=== PATIENT | male | born 1955 | race Caucasian/White ===

== ENCOUNTER 2018-11-25 09:59 | Observation (INO) | payer BC ==
[~2018-11-25] VITALS: Ht 180.3 cm; Wt 92.6 kg
[2018-11-25] VITALS (20 sets, daily range): BP systolic 114–148; BP diastolic 63–101; PULSE 72–98; RESP 10–21; Ht 180.3 cm; Wt 92.6 kg
[~2018-11-25 09:59] MED LIST: GLYCOPYRROLATE 0.4 MG INJ ONE; HYDR25TA6 PO; NEOSTIGMINE 3 MG/3 ML SYRINGE ONE; SEVOFLURANE 15 MIN ONE
[2018-11-25] MEDS ORDERED: LACTATED RINGER'S 1,000 ML IV* ONE (10:00)
[2018-11-25] MEDS ORDERED: CEFAZOLIN 2 GM/50 ML (PMX) 50 ML IVPB ONE (10:00)
[2018-11-25] MEDS ORDERED: DYAZIDE ORAL (10:40)
[2018-11-25] MEDS ORDERED: THROMBIN (BOVINE) 5,000 UNIT VIAL TP ONE (11:50)
[2018-11-25] MEDS ORDERED: HEPARIN 1000 UNITS/ML 10 ML INJ ONE (11:50)
[2018-11-25] MEDS ORDERED: GELATIN SIZE 100 SPONGE ONE (11:50)
[2018-11-25] MEDS ORDERED: BUPIVACAINE 0.25%/EPI (SDV) 30 ML INJ ONE ×2 (11:50→11:52)
[2018-11-25] MEDS ORDERED: POLYMYXIN/BACITRACIN 1L IRRIG ONE (11:50)
[2018-11-25] MEDS ORDERED: SURGIFOAM POWDER 1 GM KIT ONE (11:50)
[2018-11-25] MEDS ORDERED: CA CHLORIDE 10% 10 ML SYRINGE ONE (11:50)
--- NOTE | 2018-11-25 11:50 | PREAC ---
Date/Time of Note Date/Time of Note DATE: 11/25/18 TIME: 11:49 Anesthesia Eval and Record Evaluation Time Pre-Procedure Interview DATE: 11/25/18 TIME: 11:49 Age 63 Sex male NPO: 8 hrs Preoperative diagnosis herniated disc Planned procedure left L5-S1 extraforaminal microdiscectomy Past Medical History Past Medical History: Includes Cardio: HTN Surgery & Anesthesia Issues No known issue Meds Anticoagulation: No Beta Deborah within 24 hr: No Reason Beta Deborah not given: Pt. not on B-Deborah Reported Medications Triamterene-HCTZ (Dyazide) 37.5 - 25 Mg Cap, 1 CAP ORAL DAILY 11/25/18 Discontinued Reported Medications Hydrochlorothiazide* (Hydrochlorothiazide*) 25 Mg Tab, 25 MG PO DAILY, #30 TAB 11/21/18 Meds reviewed: Yes Allergies Coded Allergies: No Known Drug Allergies (Verified Allergy, Unknown, 11/25/18) Allergies Reviewed: Yes Labs/Studies Labs Reviewed: Reviewed by anesthesiologist test: N/A Pre-procedure Exam Last vitals Vital Signs Date Temp Pulse Resp B/P (MAP) Pulse Ox O2 O2 Flow FiO2 Time Delivery Rate 11/25/18 98.8 98 18 136/97 98 Room Air 10:55 (110) Airway: Adequate mouth opening, Adequate thyromental dist Mallampati: Mallampati II Teeth: Normal Lung: Normal Heart: Normal ASA Physical Status ASA physical status: 2 Emergency: None Planned Anesthetic General/MAC: ETT Planned Pain Management Parenteral pain med Pre-operative Attestations Prior to commencing anesthesia and surgery, the patient was re-evaluated, there was verification of: *The patient's identity *The results of appropriate recent lab work and preoperative vital signs *The above evaluation not changing prior to induction *Anesthetic plan, risk benefits, alternative and complications discussed with patient/family; questions answered; patient/family understands, accepts and wishes to proceed. MARKY CORDERO MD Nov 25, 2018 11:50
--- NOTE | 2018-11-25 12:07 | HPN ---
Date/Time of Note Date/Time of Note DATE: 11/25/18 TIME: 12:07 Interval H&P Admission Note Pt. seen H&P reviewed: No system changes RUY FRENCH MD Nov 25, 2018 12:07
[2018-11-25] MEDS ORDERED: BUPIVACAINE 0.5%/EPI (SDV) 30 ML INJ INJ ONE (12:15)
[2018-11-25] MEDS ORDERED: GELATIN COMPRESSED 100CM SPONGE TOP ONE (12:15)
[2018-11-25] MEDS ORDERED: THROMBIN 5000 UNIT VIAL TOP ONE (12:15)
[2018-11-25] MEDS ORDERED: MIDAZOLAM 1 MG/ML 2 ML INJ ONE (12:23)
[2018-11-25] MEDS ORDERED: FENTAnyl 50 MCG/ML VIAL ONE (12:23)
[2018-11-25] MEDS ORDERED: ACETAMINOPHEN 325 MG TAB PO PRN (12:30)
[2018-11-25] MEDS ORDERED: NALOXONE (0.4 MG/ML) INJ IV PRN (12:30)
[2018-11-25] MEDS ORDERED: ONDANSETRON 4 MG INJ IV PRN ×2 (12:30→14:30)
[2018-11-25] MEDS ORDERED: CEPASTAT LOZENGE MT PRN (12:30)
[2018-11-25] MEDS ORDERED: HYDROmorphONE 0.5 MG/0.5 ML SYG IV PRN (12:30)
[2018-11-25] MEDS ORDERED: AL HYDROX/MG HYDROX/SIMETH 30 ML CUP PO PRN (12:30)
[2018-11-25] MEDS ORDERED: BISACODYL 10 MG SUPP PR PRN (12:30)
[2018-11-25] MEDS ORDERED: DIPHENHYDRAMINE 50 MG INJ IV PRN ×2 (12:30→14:30)
[2018-11-25] MEDS ORDERED: HYDROCODONE/APAP (10/325) TAB PO PRN ×2 (12:30)
[2018-11-25] MEDS ORDERED: CYCLOBENZAPRINE 10 MG TAB PO PRN (12:30)
[2018-11-25] MEDS ORDERED: DIPHENHYDRAMINE 25 MG CAP PO PRN (12:30)
[2018-11-25] MEDS ORDERED: ROCURONIUM 50 MG INJ ONE (12:35)
[2018-11-25] MEDS ORDERED: SUCCINYLCHOLINE CHLORIDE 100 MG/5 ML SYG IV ONE (12:35)
[2018-11-25] MEDS ORDERED: CEFAZOLIN 1 GM INJ ONE (12:35)
[2018-11-25] MEDS ORDERED: PROPOFOL 20 ML ONE (12:35)
[2018-11-25] MEDS ORDERED: LIDOCAINE 2% (SDV) 5 ML INJ ONE (12:35)
[2018-11-25] MEDS ORDERED: ONDANSETRON 4 MG INJ ONE (12:37)
[2018-11-25] MEDS ORDERED: FAMOTIDINE 20 MG INJ ONE (12:37)
[2018-11-25] MEDS ORDERED: DEXAMETHASONE 4 MG/ML 5 ML INJ ONE (12:37)
[2018-11-25] MEDS ORDERED: HYDROmorphONE 2 MG/ML SYG ONE (12:41)
[2018-11-25] MEDS ORDERED: BUPIVACAINE 0.25% (MPF) 30 ML INJ ONE (13:15)
[2018-11-25] MEDS ORDERED: BUPIVACAINE 0.25% (MPF) 30 ML INJ INJ ONE (13:22)
[2018-11-25] MEDS ORDERED: PROCHLORPERAZINE 10 MG INJ IV PRN (14:30)
[2018-11-25] MEDS ORDERED: LABETALOL HCL 20MG INJ IV PRN (14:30)
[2018-11-25] MEDS ORDERED: MEPERIDINE 25 MG INJ IV PRN (14:30)
[2018-11-25] MEDS ORDERED: EPHEDrine SULFATE 50 MG/5 ML SYG IV PRN (14:30)
[2018-11-25] MEDS ORDERED: traMADol 50 MG TAB PO PRN (14:30)
[2018-11-25] MEDS ORDERED: hydrALAzine 20 MG INJ IV PRN (14:30)
[2018-11-25] MEDS ORDERED: HYDROmorphONE 1 MG/5 ML IV SYRINGE IV PRN ×3 (14:30)
[2018-11-25] MEDS ORDERED: OXYCODONE/ACETAMINOPHEN (5/325) TAB PO PRN (14:30)
[2018-11-25] MEDS ORDERED: FENTAnyl 50 MCG/ML VIAL IV PRN ×3 (14:30)
--- NOTE | 2018-11-25 14:34 | SIPON ---
Date/Time of Note Date/Time of Note DATE: 11/25/18 TIME: 14:33 Operative Report Preoperative Diagnosis Left L5-S1 stenosis Postoperative Diagnosis Left L5-S1 stenosis Operation/Procedure Performed Left L5-S1 discectomy Surgeon see signature line preschool assistant teacher Rosa Quezada Anesthesia: general Estimated blood loss: 10 - 50 ml's Transfusion Required none Specimen L5-S1 disc Grafts/Implants none Complications none RUY FRENCH MD Nov 25, 2018 14:34
--- NOTE | 2018-11-25 14:43 | PAC ---
Date/Time of Note Date/Time of Note DATE: 11/25/18 TIME: 14:42 Post-Anesthesia Notes Post-Anesthesia Note Last documented vital signs Vital Signs Date Temp Pulse Resp B/P (MAP) Pulse Ox O2 O2 Flow FiO2 Time Delivery Rate 11/25/18 98.0 14:37 11/25/18 98 18 136/97 98 Room Air 10:55 (110) Activity: WNL Respiratory function: WNL Cardiovascular function: WNL Mental status: Baseline Pain reasonably controlled: Yes Hydration appropriate: Yes Nausea/Vomiting absent: Yes Comments BP: 139/88 HR: 90 RR: 15 T: 98 SaO2: 99% MARKY CORDERO MD Nov 25, 2018 14:43
[2018-11-25] MEDS: D5W-0.45 NACL + KCL 20 MEQ 1,000 ML IV SCH ×2 (15:57→22:07)
--- NOTE | 2018-11-25 16:33 | OPR ---
DATE OF OPERATION: 11/25/2018 PREOPERATIVE DIAGNOSES: 1. L5 to S1 isthmic spondylolisthesis with minimal anterolisthesis. 2. Left L5 to S1 stenosis. 3. Left far lateral disk extrusion at L5 to S1. 4. Left lumbar radiculopathy. POSTOPERATIVE DIAGNOSES: 1. L5 to S1 isthmic spondylolisthesis with minimal anterolisthesis. 2. Left L5 to S1 stenosis. 3. Left far lateral disk extrusion at L5 to S1. 4. Left lumbar radiculopathy. PROCEDURES: 1. Left L5 to S1 decompression with decompression of L5 and S1 nerve roots. 2. Left L5 extraforaminal microdiskectomy. 3. Lateral localizing film x2. 4. Use of operative microscope. 5. Intraoperative neuromonitoring. PRIMARY SURGEON: Ignacio Bansal MD ELECTRICAL MAINTENANCE TECHNICIAN: Rosa Quezada PA-C NEED FOR THERMOSTAT MAKER: During this spinal surgical procedure, my family assistant was used to retract and protect the spinal nerves and dural sac. My family assistant also employed the suction catheters to evacuate blood from the surgical field to improve visualization of the neural structures. The family assistant was medically necessary to facilitate the completion of the surgery in a safe and expeditious manner. State of [place] regulations, as well as hospital bylaws, preclude the use of non-licensed health care personnel, such as operating room technicians, to perform these functions. FINDINGS: Neuromonitoring at the start of the case revealed bilateral posterior tib down 20%, bilateral L5 down 40%, left S1 down 60%, right S1 down 40%. At the end of the case, nerve signals returned to normal. The patient has pars fracture, left L5 which appeared to have a fibrous union. There was a pars complex resulting in stenosis. There is also far lateral extrusion at L5 to S1. ESTIMATED BLOOD LOSS: Less than 30 mL. DRAINS: None. SPECIMENS: L5 to S1 disk spaces. COMPLICATIONS OF PROCEDURES: None. ANESTHESIOLOGIST: Berna Graff MD TYPE OF ANESTHESIA: General. INDICATIONS FOR PROCEDURE: This is a 63-year-old gentleman with left leg pain and a foot drop. He failed nonoperative measures; therefore, I recommended that he undergo the above procedure. Preoperatively, we discussed risks, benefits, alternatives. He understood and wished to proceed. Although the patient had pars fracture, we elected not to proceed with fusion as he only had leg pain. He understood that he may become unstable as a result of the surgery, at which point he may require a fusion procedure. DESCRIPTION OF PROCEDURE IN DETAIL: The patient was identified in the preoperative holding area, given Ancef antibiotic, taken to the operating room, where he was successfully placed under general anesthesia. Neuromonitoring leads were placed. Sequential compressive devices were applied. Remote intraoperative neuromonitoring was performed by Dr. Curry to include SSEP, MEP and EMG performed by [employer]. End time was 2:30 p.m. Start time was 12:00 p.m. The patient was placed on the operating table in prone position over a Arnaldo frame. All bony prominences were well padded. The back was prepped, draped in usual sterile fashion. Spinal needles were placed and lateral localizing films were obtained to confirm the correct levels. Once this was confirmed, I injected Marcaine and epinephrine. Incision was then made over the L5 to S1 level. Left L5 and S1 lamina were exposed and a lateral localizing films were obtained to confirm the correct levels. Once this was confirmed, microscope was brought in. Left-sided hemilaminotomy, partial medial facetectomy and foraminotomy were then performed. I kept going up superiorly and although there appeared to be a fracture, it appeared quite stable and therefore, I did not remove the entire pars. I dissected up to the pedicle and I was able to identify the L5 nerve root. I took the ligamentum flavum off and identified the central canal as well as the S1 nerve root as well. Pars complex was identified and this resulted in stenosis. I removed this with curettes and Kerrison punches and was able to decompress the L5 and S1 nerve roots on the left side. The patient has far lateral disk extrusion; therefore, I made an annulotomy and performed extraforaminal lumbar microdiskectomy at L5 to S1 as well to decompress the extraforaminal L5 nerve root. Once this was done, all the nerve signals returned to normal. I irrigated the disk space and the wound. Multiple free disk fragments were encountered within the disk space as well. Hemostasis was achieved. PPP and thrombin was then injected. Retractors were then removed. I injected plain Marcaine. This was injected into the paraspinal musculature and tissue. I closed deep fascia with a #1 Vicryl stitch. Microscope was taken off the field. A 2-0 Vicryl closure was then performed followed by 4-0 Monocryl stitch. Dermabond was then applied. The patient was then awakened from anesthesia and taken to the recovery room in stable condition. Lap, sponge and instrument counts were correct x2. There were no apparent complications during the procedure. The patient will be admitted to the [facility] for routine postoperative care to include pain control, neurovascular checks, antibiotics and physical therapy. Dictated By: IGNACIO BANSAL MD BB/SYD Conf#: [id number] DID#: [id number] CC: ESHA ARIZA MD;*EndCC* MTDD
[2018-11-25] MEDS: CEFAZOLIN 1 GM/50 ML (PMX) 50 ML IVPB SCH (17:43)
--- NOTE | 2018-11-25 18:02 | CONS ---
DATE OF ADMISSION: 11/25/2018 DATE OF CONSULTATION: 11/25/2018 TYPE OF CONSULTATION: Postoperative medical. Thank you very much for allowing me to evaluate this 63-year-old male who just underwent lumbar back surgery. HISTORICAL EVENTS: As you well know, this patient had the onset of pain and weakness involving his l eft ankle. You have evaluated him on 11/01/2018. His symptoms began in 07/2018 after hiking. A Med rol Dosepak was tried to no avail. Because of persistent symptoms and following imaging studies, he elected to proceed with your recommended surgical intervention. Postoperatively, he is reasonably co mfortable without cough, wheezing, shortness of breath, nausea, vomiting, abdominal or chest pain. PAST MEDICAL HISTORY: Includes: 1. Bronchitis. 2. Hypertension. 3. History of sleep apnea. 4. Cataract surgery. 5. Retinal detachment. MEDICATIONS PRIOR TO ADMISSION: Include: 1. Maxzide-25. 2. Naprosyn p.r.n. 3. Tramadol. ALLERGIES: NONE. SOCIAL HISTORY: He is an aviation engineer, , nonsmoker, occasionally drinks alcohol. PHYSICAL EXAMINATION: GENERAL: Witmer male, in no acute distress. VITAL SIGNS: BP 118/78, pulse 72, respirations were 18. He was afebrile. HEENT: Eyes: Extraocular muscles were full. Nose, mouth and throat are normal. NECK: Supple. There was no jugular venous distention, thyroid enlargement or adenopathy. LUNGS: Clear. HEART: Rhythm regular. No murmur. No third or fourth sound. ABDOMEN: Nontender. Liver and spleen were not palpable. No mass or tenderness were noted. EXTREMITIES: No edema. Calves are nontender. IMPRESSION: 1. Stable postoperative lumbar back surgery, stable. 2. Hypertension. Blood pressure will be observed, but institute diuretics now given extracell ular fluid losses postoperatively and use Catapres as needed for elevated blood pressure. 4. Evaluate daily for signs and symptoms of thromboembolic disease. Dictated By: ESHA MENDOZA/NTS Conf#: [id number] DID#: [id number] CC: RUY FRENCH MD;*EndCC*
[2018-11-25] MEDS: DOCUSATE SODIUM 100 MG CAP PO SCH (20:26)
[2018-11-25] MEDS: traMADol 50 MG TAB PO PRN (20:26)
[2018-11-25] MEDS: METOPROLOL 25 MG TAB PO SCH (20:27)
[2018-11-25] MEDS: CARISOPRODOL 350 MG TAB PO PRN (21:55)
[2018-11-26 00:54] VITALS: BP 115/79; PULSE 82; RESP 18
[2018-11-26] MEDS: CEFAZOLIN 1 GM/50 ML (PMX) 50 ML IVPB SCH ×2 (01:51→10:36)
[2018-11-26] MEDS: D5W-0.45 NACL + KCL 20 MEQ 1,000 ML IV SCH (05:18)
[2018-11-26 07:44] VITALS: BP 114/73; PULSE 76; RESP 18
--- NOTE | 2018-11-26 08:20 | CONS ---
Assessment/Plan Assessment/Plan Assessment/Plan (Daily) 1. Stable post op lumbar back surgery. 2. HBP, controlled, will resume diuretics once off IV's 3. Labs rev Consultation Date/Type/Reason Admit Date/Time Nov 25, 2018 at 15:47 Initial Consult Date Date/Time of Note DATE: 11/26/18 TIME: 08:19 Detailed Summary Cardiovascular: No chest pain, No orthopenea, No palpitations, No paroxysmal nocturnal dyspnea Gastrointestinal: no complaints Genitourinary: no complaints Musculoskeletal: back pain (moderate ) Exam/Review of Systems Exam Vitals Vital Signs Date Temp Pulse Resp B/P (MAP) Pulse Ox O2 O2 Flow FiO2 Time Delivery Rate 11/26/18 98.6 76 18 114/73 98 Room Air 07:44 (87) 11/25/18 2.0 17:58 Intake and Output 11/25/18 11/25/18 11/26/18 1515:00 23:00 07:00 IntakeIntake Total 1600 ml 250 ml 1090 ml OutputOutput Total 10 ml 400 ml 1050 ml BalanceBalance 1590 ml -150 ml 40 ml Neck: No jvd Respiratory: clear to auscultation Cardiovascular: regular rate and rhythm Extremities: No edema, No tenderness Results Result Diagram: 11/26/18 0435 11/26/18 0435 Results 24hrs Laboratory Tests Test 11/26/18 04:35 11/26/18 07:27 White Blood Count 19.0 H Red Blood Count 4.52 L Hemoglobin 14.0 Hematocrit 40.2 L Mean Corpuscular Volume 88.9 Mean Corpuscular Hemoglobin 31.0 Mean Corpuscular Hemoglobin Concent 34.8 Red Cell Distribution Width 12.4 Platelet Count 268 Mean Platelet Volume 8.9 Immature Granulocytes % 0.600 H Neutrophils % 84.1 H Lymphocytes % 8.7 L Monocytes % 6.5 Eosinophils % 0.0 Basophils % 0.1 Nucleated Red Blood Cells % 0.0 Immature Granulocytes # 0.110 H Neutrophils # 16.0 H Lymphocytes # 1.7 Monocytes # 1.2 H Eosinophils # 0.0 Basophils # 0.0 Nucleated Red Blood Cells # 0.0 Sodium Level 137 Potassium Level 3.6 Chloride Level 104 Carbon Dioxide Level 29 Anion Gap 4 L Blood Urea Nitrogen 15 Creatinine 0.91 Est Glomerular Filtrat Rate mL/min > 60 Glucose Level 150 Calcium Level 8.9 Magnesium Level 2.1 Lab Scanned Report REFERENCE LAB Medications Medication Current Medications Potassium Chloride/Dextrose/ Sod Cl 1,000 ml @ 100 mls/hr Q10H IV Last administered on 11/26/18at 05:18; Admin Dose 100 MLS/HR; Start 11/25/18 at 12:07 Hydromorphone HCl (Dilaudid) 0.2 mg Q1H PRN IV .BREAKTHROUGH PAIN; Start 11/25/18 at 12:30 Cefazolin Sodium 50 ml @ 100 mls/hr Q8H IVPB Last administered on 11/26/18at 01:51; Admin Dose 100 MLS/HR; Start 11/25/18 at 18:00; Stop 11/26/18 at 10:29 Ondansetron HCl (Zofran Inj) 4 mg Q6H PRN IV NAUSEA/VOMITING; Start 11/25/18 at 12:30 Bisacodyl (Dulcolax Supp) 10 mg DAILY PRN [place] .CONSTIPATION; Start 11/25/18 at 12:30 Docusate Sodium (Colace) 100 mg BID PO Last administered on 11/25/18at 20:26; Admin Dose 100 MG; Start 11/25/18 at 21:00 Al Hydrox/Mg Hydrox/Simethicone (Mag-Al Plus) 15 ml Q6H PRN PO .CONSTIPATION/DYSPEPSIA; Start 11/25/18 at 12:30 Acetaminophen (Tylenol Tab) 650 mg Q4H PRN PO [place] OR TEMP GREATER THAN 101.3F; Start 11/25/18 at 12:30 Phenol (Cepastat Lozenge) 1 lozenge PRN PRN [place] .SORE THROAT; Start 11/25/18 at 12:30 Diphenhydramine HCl (Benadryl) 25 mg Q6H PRN PO .ITCHING; Start 11/25/18 at 12:30 Diphenhydramine HCl (Benadryl) 25 mg Q6H PRN IV .ITCHING; Start 11/25/18 at 12:30 Naloxone HCl (Narcan) 0.2 mg Q2M PRN IV .RR 8 BREATHS/MIN OR LESS; Start 11/25/18 at 12:30 Tramadol HCl (Ultram) 50 mg Q4H PRN PO .PAIN 1-5 Last administered on 11/25/18 20:26; Admin Dose 50 MG; Start 11/25/18 at 14:30 Tramadol HCl (Ultram) 100 mg Q4H PRN PO .PAIN 6-10; Start 11/25/18 at 14:30 Carisoprodol (Soma) 350 mg TID PRN PO .MUSCLE SPASMS Last administered on 11/25/18 21:55; Admin Dose 350 MG; Start 11/25/18 at 14:30 Clonidine (Catapres) 0.1 mg TID PO ; Start 11/25/18 at 21:00 Metoprolol Tartrate (Lopressor) 25 mg TID PO Last administered on 11/25/18 20:27; Admin Dose 25 MG; Start 11/25/18 at 21:00 ESHA ARIZA MD Nov 26, 2018 08:20
[2018-11-26] MEDS ORDERED: POTASSIUM CHLORIDE (SR) 10 MEQ TAB PO ONE (08:30)
[2018-11-26] MEDS: DOCUSATE SODIUM 100 MG CAP PO SCH (09:05)
[2018-11-26] MEDS: traMADol 50 MG TAB PO PRN (09:06)
[2018-11-26] MEDS: METOPROLOL 25 MG TAB PO SCH ×2 (09:07→13:33)
--- NOTE | 2018-11-26 09:32 | DS ---
Date/Time of Note Date/Time of Note DATE: 11/26/18 TIME: 09:31 Discharge Summary Admission/Discharge Info Admit Date/Time Nov 25, 2018 at 15:47 Discharge Date/Time November 26 Discharge Diagnosis Lumbar discectomy Patient Condition: Good Procedures Lumbar discectomy Hospital Course Patient was admitted to the [facility] after undergoing a lumbar discectomy. His postoperative course was uncomplicated. By postoperative day 1 he was deemed stable for discharge to follow-up arranged with the undersigned Home Meds Reported Medications Triamterene-HCTZ (Dyazide) 37.5 - 25 Mg Cap, 1 CAP ORAL DAILY 11/25/18 Discontinued Reported Medications Hydrochlorothiazide* (Hydrochlorothiazide*) 25 Mg Tab, 25 MG PO DAILY, #30 TAB 11/21/18 Primary Care Provider Not On Staff Doctor Pending Labs Laboratory Tests Test 11/26/18 04:35 11/26/18 07:27 White Blood Count 19.0 10^3/ul (4.8-10.8) Red Blood Count 4.52 10^6/ul (4.70-6.10) Hemoglobin 14.0 g/dl (14.0-18.0) Hematocrit 40.2 % (42.0-52.0) Mean Corpuscular Volume 88.9 fl (82.0-101.0) Mean Corpuscular Hemoglobin 31.0 pg (29.0-33.0) Mean Corpuscular 34.8 g/dl (32.0-37.0) Hemoglobin Concent Red Cell Distribution Width 12.4 % (11.5-14.5) Platelet Count 268 10^3/UL (140-415) Mean Platelet Volume 8.9 fl (7.4-10.4) Immature Granulocytes % 0.600 % (0.001-0.429) Neutrophils % 84.1 % (39.0-77.0) Lymphocytes % 8.7 % (15.0-51.0) Monocytes % 6.5 % (0.0-11.0) Eosinophils % 0.0 % (0.0-7.0) Basophils % 0.1 % (0.0-2.0) Nucleated Red Blood Cells % 0.0 /100WBC (0.0-0.0) Immature Granulocytes # 0.110 10^3/ul (0.0-0.031) Neutrophils # 16.0 10^3/ul (1.6-7.5) Lymphocytes # 1.7 10^3/ul (0.8-2.9) Monocytes # 1.2 10^3/ul (0.3-0.9) Eosinophils # 0.0 10^3/ul (0.0-0.5) Basophils # 0.0 10^3/ul (0.0-0.1) Nucleated Red Blood Cells # 0.0 10^3/ul (0.0-0.0) Sodium Level 137 mmol/L (135-144) Potassium Level 3.6 mmol/L (3.5-5.1) Chloride Level 104 mmol/L (97-110) Carbon Dioxide Level 29 mmol/L (21-31) Anion Gap 4 (5-13) Blood Urea Nitrogen 15 mg/dl (7-20) Creatinine 0.91 mg/dl (0.61-1.24) Est Glomerular Filtrat > 60 mL/min (>60) Rate mL/min Glucose Level 150 mg/dl (70-220) Calcium Level 8.9 mg/dl (8.4-10.2) Magnesium Level 2.1 mg/dl (1.7-2.5) Lab Scanned Report REFERENCE LAB [id number] RUY FRENCH MD Nov 26, 2018 09:32
[2018-11-26] MEDS: CARISOPRODOL 350 MG TAB PO PRN (10:37)
[2018-11-26 13:25] VITALS: BP 122/73
[2018-11-26 14:26] VITALS: BP 115/76; PULSE 90; RESP 18
== END 2018-11-26 16:00 | disposition home or self-care (01) ==
LOC: SDS 09:59 → REC 15:47 → MS1 15:49
PROVIDERS: ADMIT Specialist; ATTEND Specialist
DX: M43.17 Spondylolisthesis, lumbosacral region (principal); M54.16 Radiculopathy, lumbar region; I10 Essential (primary) hypertension
CPT/HCPCS: 63030; 72020; 80048; 83735; 85025; 86999; 88304; 97116; 97161; 97530; G0378; J0690; J1100; J1170; J1200; J1644; J2250; J2405; J2710; J3010; J3480